=== PATIENT | male | born 1945 | race Caucasian/White ===

== ENCOUNTER → 2021-09-09 | Outpatient (CLI) | payer MEDICARE | LOC: KOH-I 09:43 | DX: F17.210 Nicotine dependence, cigarettes, uncomplicated (principal); K80.80 Other cholelithiasis without obstruction | CPT/HCPCS: 71271 ==

== ENCOUNTER → 2021-10-27 | Outpatient (CLI) | payer MEDICARE, OTHER | LOC: KOH-I 09:30 | DX: K80.20 Calculus of gallbladder without cholecystitis without obstruction (principal) | CPT/HCPCS: 76705 ==

== ENCOUNTER 2022-02-12 11:36 | Emergency (ER) | payer MEDICARE, OTHER ==
[2022-02-12] MEDS ORDERED: ENDOCET 5-3251 EACH PO (12:16)
== END 2022-02-12 12:46 | disposition home or self-care (01) ==
LOC: ER1 11:36
DX: M54.16 Radiculopathy, lumbar region (principal)
CPT/HCPCS: 72100; 99283

== ENCOUNTER → 2022-02-13 | Outpatient (CLI) | payer MEDICARE, OTHER ==
[~2022-02-13] MED LIST: ENDOCET 5-3251 EACH PO
== END ==
LOC: KOH-I 15:38
DX: R10.9 Unspecified abdominal pain (principal); R31.29 Other microscopic hematuria; R35.0 Frequency of micturition; N32.89 Other specified disorders of bladder
CPT/HCPCS: 74176